=== PATIENT | male | born 1995 | race Caucasian/White ===

== ENCOUNTER 2019-04-25 17:10 | Emergency (ER) | payer OTHER, SELFPAY ==
--- NOTE | 2019-04-25 17:13 | W.ED.GENAD ---
Discharge Plan Disposition Patient Disposition: HOME Condition: Fair Discharge Details Chief Complaint: Orthopedic Clinical Impression: Finger fracture, left Primary Care Provider: Tony Melara ED Provider: Faina Barrientos Discharge Instructions Instructions: Finger Fracture (ED) Additional Instructions: Encourage rest, ice, elevation. Please continue with splint until cleared by orthopedics. Tylenol and ibuprofen as needed for discomfort. Please call orthopedics tomorrow to schedule follow-up appointment. If you develop new or worsening symptoms seek care urgently once again. Referrals: Wally Lara MD [ [facility] STAFF PHYSICIAN] - Tony Melara [Primary Care Provider] - Discharge Data Discharge Date/Time-TO BE ENTERED AT DEPARTURE: 04/25/19 18:20 Medical Decision Making Patient is a 23-year-old [id number]-ring-lxbsycpz male presents today with chief complaint of left fifth digit PIP joint pain. He reports that 3 weeks ago was playing basketball and suffered multiple episodes where the ball struck the tip of his finger causing it to jam. States that at one point he had a lateral dislocation at the PIP joint which she self reduced. He reports that despite this amount of time, elevating and intermittent icing, intermittent ibuprofen, pain is not improved. States that he has pain, particular with activity. Worse with any movement the force of the finger laterally. Denies any altered sensation. Denies other injuries from the incident. States that initially, he did have swelling that radiated up into the MCP joint but this is since resolved. Continues to have swelling at the PIP joint. Does seem to have some flexion extension against resistance intact but largely, is having a limited range of motion at the PIP joint. Does not have any laxity with medial or lateral joint line testing FINDINGS: Bones/joints: There is a small radiopaque density along the volar aspect of the fifth IP joint consistent with small bony fragment or radiopaque foreign body. Soft tissues: There is soft tissue swelling of the left fifth digit. IMPRESSION: 1. Soft tissue swelling left fifth digit. 2. Radiopaque density along the volar aspect of the IP joint may represent small bone fragment or radiopaque foreign body. The lateral view is overexposed and suboptimal for bone detail. Discussed findings with the patient. Patient diagnosed with fracture at the PIP joint of the fifth left finger. Advised rest, ice, elevation. Tylenol and ibuprofen as needed for discomfort. Patient was placed in a immobilizing foam and metal splint. Advised needs to follow-up with orthopedics, he will call tomorrow to schedule appointment. We discussed new/worsening symptoms when to seek care urgently once again. He will keep the splint on until reevaluated by orthopedics. All his questions and concerns were addressed and he is in agreement this plan HPI General Mode of arrival: ambulatory. Date/Time Provider Initiated Documentation: 04/25/19 17:12. Limitations to Documentation: no limitations. Information obtained by: patient and RN notes reviewed. History of Present Illness 23 year old M presents to the emergency department with the chief complaint of left 5th digit pain , described as mild, Quality is described as aching, and is localized to the left and upper extremity (PIP joint pain). Patient reports no radiation. Patient started experiencing this week(s) (3) and it has been intermittent. Immobilization improves symptom(s), Movement worsens symptoms . Patient notes rash (bruising PIP joint). Patient did receive the following treatments prior to arrival, NSAID Related Data Allergies Allergy/AdvReac Type Severity Reaction Status Date / Time No Known Allergies Allergy Unverified 04/25/19 17:18 Review of Systems Constitutional Reports as per HPI, Denies chills, Denies fever(s), Denies headache(s) and Denies weakness ENT Denies headache(s) Cardiovascular Reports as per HPI Respiratory Reports as per HPI and Denies cough Musculoskeletal Reports as per HPI and Denies tingling Integumentary/Breasts Reports as per HPI and Reports other (bruising PIP 5th digit) Neurologic Reports as per HPI, Denies headache(s), Denies tingling, Denies paresthesias and Denies weakness [facility] Surgical History Tonsillectomy and adenoidectomy Social History Smoking/Tobacco Use Status: Never Drug use: Occasionally Substance use type: marijuana Do you feel safe in your relationship?: Yes Exam Const General: cooperative, healthy appearing, comfortable, no acute distress, well developed and well groomed Nutritional Appearance: average body habitus and well nourished Orientation: alert and awake Resp Effort & Inspection: normal respiratory effort, able to speak in complete sentences and no respiratory distress Cardio Rate: regular rate Rhythm: regular rhythm Skin General skin exam: ecchymosis (PIP joint left fifth digit) Neuro General: alert and awake Cognition: normal cognition Speech: speech normal Gait: normal gait Motor: muscle tone normal throughout Sensory Exam: no sensory deficits noted Extrem Left upper extremity: normal capillary refill, wrist Details: normal to inspection and normal ROM; no tenderness and no swelling and hand Details: normal capillary refill, neuromotor exam normal, neurosensory exam normal, tenderness Location: of the 5th digit Location: at the PIP joint, vascular exam Details: radial pulse present and normal capillary refill, abnormal ROM of finger Details: pain with active ROM and unable to flex Location: of the 5th digit (limited flexion 5th PIP), swelling Location: of the 5th digit Location: at the PIP joint and ecchymosis; no abrasions, no lacerations and no crepitus; ROM limited (limited at PIP 5th digit) and joint enlargement noted (swellign PIP joint 5th digit) Psych Appearance: grossly normal and well kempt Mental Status: mental status grossly normal Speech and Movement: speech and movement normal
[2019-04-25 17:15] VITALS: BP 141/77; PULSE 66; RESP 16; TEMP 36.6; O2SAT 99
--- NOTE | 2019-04-25 17:31 | DI.RAD_ITS ---
SYMPTOM/DIAGNOSIS: TRAUMA, DIP PAIN, JAMMED PLAYING BASKETBALL LEFT LITTLE FINGER: Three views were obtained. There is soft tissue swelling adjacent to the PIP joint and on the lateral view there is a small denisse of ossific or calcific material suspicious for volar plate avulsion. No other fracture is seen.
--- NOTE | 2019-04-25 17:38 | ED.GENADUL_ITS ---
Discharge Plan Disposition Patient Disposition: HOME Condition: Fair Discharge Details Chief Complaint: Orthopedic Clinical Impression: Finger fracture, left Primary Care Provider: Tony Melara ED Provider: Faina Barrientos Discharge Instructions Instructions: Finger Fracture (ED) Additional Instructions: Encourage rest, ice, elevation. Please continue with splint until cleared by orthopedics. Tylenol and ibuprofen as needed for discomfort. Please call orthopedics tomorrow to schedule follow-up appointment. If you develop new or worsening symptoms seek care urgently once again. Referrals: Wally Lara MD [ [facility] STAFF PHYSICIAN] - Tony Melara [Primary Care Provider] - Discharge Data Discharge Date/Time-TO BE ENTERED AT DEPARTURE: 04/25/19 18:20 Medical Decision Making Patient is a 23-year-old qemqm-krux-mxpmyjee male presents today with chief complaint of left fifth digit PIP joint pain. He reports that 3 weeks ago was playing basketball and suffered multiple episodes where the ball struck the tip of his finger causing it to jam. States that at one point he had a lateral dislocation at the PIP joint which she self reduced. He reports that despite this amount of time, elevating and intermittent icing, intermittent ibuprofen, pain is not improved. States that he has pain, particular with activity. Worse with any movement the force of the finger laterally. Denies any altered sensation. Denies other injuries from the incident. States that initially, he did have swelling that radiated up into the MCP joint but this is since resolved. Continues to have swelling at the PIP joint. Does seem to have some flexion extension against resistance intact but largely, is having a limited range of motion at the PIP joint. Does not have any laxity with medial or lateral joint line testing FINDINGS: Bones/joints: There is a small radiopaque density along the volar aspect of the fifth IP joint consistent with small bony fragment or radiopaque foreign body. Soft tissues: There is soft tissue swelling of the left fifth digit. IMPRESSION: 1. Soft tissue swelling left fifth digit. 2. Radiopaque density along the volar aspect of the IP joint may represent small bone fragment or radiopaque foreign body. The lateral view is overexposed and suboptimal for bone detail. Discussed findings with the patient. Patient diagnosed with fracture at the PIP joint of the fifth left finger. Advised rest, ice, elevation. Tylenol and ibuprofen as needed for discomfort. Patient was placed in a immobilizing foam and metal splint. Advised needs to follow-up with orthopedics, he will call tomorrow to schedule appointment. We discussed new/worsening symptoms when to seek care urgently once again. He will keep the splint on until reevaluated by orthopedics. All his questions and concerns were addressed and he is in agreement this plan HPI General Mode of arrival: ambulatory . Date/Time Provider Initiated Documentation: 04/25/19 17:12 . Limitations to Documentation: no limitations . Information obtained by: patient and RN notes reviewed . History of Present Illness 23 year old M presents to the emergency department with the chief complaint of left 5th digit pain , described as mild, Quality is described as aching, and is localized to the left and upper extremity (PIP joint pain). Patient reports no radiation. Patient started experiencing this week(s) (3) and it has been intermittent. Immobilization improves symptom(s), Movement worsens symptoms . Patient notes rash (bruising PIP joint). Patient did receive the following treatments prior to arrival, NSAID Related Data Allergies Allergy/AdvReac Type Severity Reaction Status Date / Time No Known Allergies Allergy Unverified 04/25/19 17:18 Review of Systems Constitutional Reports as per HPI, Denies chills, Denies fever(s), Denies headache(s) and Denies weakness ENT Denies headache(s) Cardiovascular Reports as per HPI Respiratory Reports as per HPI and Denies cough Musculoskeletal Reports as per HPI and Denies tingling Integumentary/Breasts Reports as per HPI and Reports other (bruising PIP 5th digit) Neurologic Reports as per HPI, Denies headache(s), Denies tingling, Denies paresthesias and Denies weakness [facility] Surgical History Tonsillectomy and adenoidectomy Social History Smoking/Tobacco Use Status: Never Drug use: Occasionally Substance use type: marijuana Do you feel safe in your relationship?: Yes Exam Const General: cooperative, healthy appearing, comfortable, no acute distress, well developed and well groomed Nutritional Appearance: average body habitus and well nourished Orientation: alert and awake Resp Effort & Inspection: normal respiratory effort, able to speak in complete sentences and no respiratory distress Cardio Rate: regular rate Rhythm: regular rhythm Skin General skin exam: ecchymosis (PIP joint left fifth digit) Neuro General: alert and awake Cognition: normal cognition Speech: speech normal Gait: normal gait Motor: muscle tone normal throughout Sensory Exam: no sensory deficits noted Extrem Left upper extremity: normal capillary refill, wrist Details: normal to inspection and normal ROM; no tenderness and no swelling and hand Details: normal capillary refill, neuromotor exam normal, neurosensory exam normal, tenderness Location: of the 5th digit Location: at the PIP joint, vascular exam Details: radial pulse present and normal capillary refill, abnormal ROM of finger Details: pain with active ROM and unable to flex Location: of the 5th digit (limited flexion 5th PIP), swelling Location: of the 5th digit Location: at the PIP joint and ecchymosis; no abrasions, no lacerations and no crepitus; ROM limited (limited at PIP 5th digit) and joint enlargement noted (swellign PIP joint 5th digit) Psych Appearance: grossly normal and well kempt Mental Status: mental status grossly normal Speech and Movement: speech and movement normal
--- NOTE | 2019-04-25 18:01 | DI.VRAD_ITS ---
EXAM: XR Left Finger(s) EXAM DATE/TIME: 04/25/2019 5:32 PM CLINICAL HISTORY: 23 years old, male; Pain; Finger(s); Left TECHNIQUE: Imaging protocol: XR Left fingers. Views: Minimum 2 views. COMPARISON: No relevant prior studies available. FINDINGS: Bones/joints: There is a small radiopaque density along the volar aspect of the fifth IP joint consistent with small bony fragment or radiopaque foreign body. Soft tissues: There is soft tissue swelling of the left fifth digit. IMPRESSION: 1. Soft tissue swelling left fifth digit. 2. Radiopaque density along the volar aspect of the IP joint may represent small bone fragment or radiopaque foreign body. The lateral view is overexposed and suboptimal for bone detail. Dictated and Authenticated by: Concha Zaragoza MD. Ordering:CONNER Eisenberg MD
== END 2019-04-25 18:20 | disposition home or self-care (01) ==
PROVIDERS: Emergency Provider Physician Assistant; PCP Family Medicine
DX: S62.617A Displaced fracture of proximal phalanx of left little finger, initial encounter for closed fracture (principal); W21.05XA Struck by basketball, initial encounter
CPT/HCPCS: 26720; 73140

== ENCOUNTER 2019-05-03 13:58 | Outpatient (CLI) | payer OTHER, SELFPAY ==
--- NOTE | 2019-05-03 10:52 | DI.RAD_ITS ---
SYMPTOMS/DIAGNOSIS: FOLLOW UP LEFT LITTLE FINGER: Soft tissue swelling is noted over the proximal and middle phalanx. There is a tiny bony density adjacent to the anterior lip of the proximal metaphysis of the middle phalanx which would be consistent with a small cortical avulsion fracture which is in the region of the insertion of the flexor tendon. These findings unchanged when compared with the prior study of 04/25/19.
== END 2019-05-03 14:18 ==
PROVIDERS: PCP Family Medicine; Visit Provider Orthopaedic Surgery
DX: S62.617D Displaced fracture of proximal phalanx of left little finger, subsequent encounter for fracture with routine healing (principal)
CPT/HCPCS: 73140

== ENCOUNTER 2024-01-12 08:46 | Emergency (ER) | payer OTHER, SELFPAY ==
[2024-01-12] VITALS (7 sets, daily range): BP systolic 131–142; BP diastolic 71–73; PULSE 70–81; RESP 11–17; TEMP 36.7; O2SAT 99–100
--- NOTE | 2024-01-12 08:45 | RT.EKG_ITS ---
APPROVED REPORT Exam: Resting ECG Reason for Exam: Chest Pain Patient Location: E HR:68 bpm ECG Measurements Heart Rate 68 AXIS SC 155 P -1 QRSd 87 QRS 0 QT 387 T 24 QTc 411 Conclusion Sinus rhythm...normal P axis, V-rate 60- 99 Ventricular premature complex...V complex w/ short R-R interval Indeterminate axis...QRS axis indeterminate ST elev, probable normal early repol pattern...ST elevation, age<55
--- NOTE | 2024-01-12 09:00 | DI.RAD_ITS ---
Exam(s) XR CHEST 2V PA LATERAL EXAM: XR CHEST 2V PA LATERAL CLINICAL HISTORY: chest pain TECHNIQUE: 2D digital imaging was performed. Two views. COMPARISON: No exams were available for comparison FINDINGS: HEART: Normal size. Aorta: Not dilated. PULMONARY VASCULATURE: Normal. LUNGS: Clear. PLEURAL SPACE: No pleural effusion or pneumothorax. BONE:Unremarkable for age. Soft tissues: Unremarkable. IMPRESSION: No acute abnormality. DATA REPOSITORY: RADIATION DOSE DELIVERED:
--- NOTE | 2024-01-12 09:08 | ED.GENADUL_ITS ---
Discharge Plan Disposition Patient Disposition: Home Condition: Stable Discharge Details Chief Complaint: Chest Pain Clinical Impression: Back pain, Chest pain Primary Care Provider: Unknown,Unknown ED Provider: Singh Patton Home Meds and New Rx's Prescriptions: No Action No Known Home Meds Discharge Instructions Instructions: Chest Pain (ED), Back Pain (ED) Additional Instructions: If symptoms continue in a week follow-up with your primary care provider Your labs and x-ray today did not show concerning findings If you feel more ill, have severe worsening pain or severe difficulty breathing return to the emergency department for reevaluation HPI General Mode of arrival: ambulatory . Date/Time Provider Initiated Documentation: 01/12/24 08:47 . Limitations to Documentation: no limitations . Information obtained by: patient . History of Present Illness 28 year old M presents to the emergency department with the chief complaint of chest pain, described as moderate, Quality is described as aching, and is localized to the chest. Patient reports radiation to back. Patient started experiencing this hour(s) (3) and it has been intermittent. No relieving factors improve symptom(s), No exacerbating factors reported . Patient notes no other symptoms.; denies fever/chills and shortness of breath. Patient did receive the following treatments prior to arrival, none Related Data Home Medications Medication Instructions Recorded Confirmed Unknown [No Known Home Meds] 05/03/19 01/12/24 Allergies Allergy/AdvReac Type Severity Reaction Status Date / Time No Known Allergies Allergy Unverified 01/12/24 08:59 General Stated Complaint: Chest Pain JUAN: 3 Review of Systems All systems reviewed & are unremarkable except as noted in HPI and below Constitutional Constitutional: Denies chills, Denies fever(s) and Denies weakness Cardiovascular Cardiovascular: Reports chest pain and Denies dyspnea Respiratory Respiratory: Denies cough and Denies dyspnea Gastrointestinal Gastrointestinal: Denies abdominal pain, Denies nausea and Denies vomiting Musculoskeletal Musculoskeletal: Denies joint swelling Neurologic Neurologic: Denies weakness Psychiatric Psychiatric: Denies depression Exam Const General: no acute distress Orientation: alert HENNM Head: normal to inspection Ears: external ears normal General nose exam: external nose normal Mouth: moist mucous membranes Eyes General: appearance normal, both eyes and all related structures Neck Neck: normal visual inspection Chest Chest: normal inspection of the chest Resp Effort & Inspection: normal respiratory effort and able to speak in complete sentences Auscultation: clear to auscultation bilaterally Cardio Jugular venous pressure: no JVD Rate: regular rate Heart Sounds: no murmurs GI Palpation: soft and nontender Skin General skin exam: no rashes or lesions noted Neuro General: patient alert and patient oriented x3 Extrem General: normal to inspection Psych Mental Status: mental status grossly normal Course Vital Signs Vital signs: Vital Signs Pulse 76 01/12/24 08:50 Respiratory Rate 13 01/12/24 08:50 Blood Pressure 131/73 01/12/24 08:50 Pulse Oximetry 100 01/12/24 08:50 Pulse 76 01/12/24 08:50 Respiratory Rate 17 01/12/24 08:58 Respiratory Effort Short of Breath 01/12/24 08:58 Respiratory Depth Normal 01/12/24 08:58 Respiratory Pattern Normal 01/12/24 08:58 Blood Pressure 131/73 01/12/24 08:50 Blood Pressure Position Sitting 01/12/24 08:50 Pulse Oximetry 100 01/12/24 08:50 Oxygen Delivery Method Room Air 01/12/24 08:50 Oxygen Flow Rate 0 01/12/24 08:50 Pain Level 5 01/12/24 09:06 Medical Decision Making 28-year-old male who denies any significant past medical history comes in with complaints of chest tightness and aching. States he was feeling well when he woke up and then was lifting a box when he started having the chest pain and upper back pain. Denies any recent fevers, no cough, denies any IV drug use. He is alert and oriented x 4 on arrival and appears well speaking in full sentences. He has no JVD, clear lung sounds, no murmur, no leg swelling or calf tenderness. He does have reproducible anterior chest tenderness. Suspect musculoskeletal back pain but will send a troponin, CMP, and obtain a chest x- ray. He has no tearing back pain, and equal peripheral pulses so doubt dissection, and he is Wells score low and PERC negative so doubt PE. Labs and imaging unremarkable, symptoms started 3 hours prior to coming in so do not feel delta troponin indicated. Suspect musculoskeletal back and chest pain, he is stable for discharge, advised to follow-up with his primary care provider within a week especially if symptoms continue and return precautions given Differential Diagnosis Differential Diagnosis: NSTEMI, chest wall pain, pneumothorax Imaging Data Radiologic Study: Attestation: I personally reviewed and interpreted this imaging study as follows: Imaging: X-Ray Radiologist's impression: No acute findings Lab Data Lab results reviewed: Yes I reviewed the patient's lab results. ECG Data Attestation: I personally reviewed and interpreted this ECG (s) as follows: Prior ECG tracings: not available for review Interpretation: sinus, rate of 68, pr 155, no stemi Quality:SDOH Health Related Social Needs: No Data to Display PFSH All Active Problems (Updated 01/12/24 @ 10:30 by Singh Patton MD) Chest pain (Acute) Back pain (Acute) Fracture of middle phalanx of finger of left hand (Acute) Surgical History Tonsillectomy and adenoidectomy Social History Smoking/Tobacco Use Status: Never Smoking risk assessment performed?: Yes Drug use: Occasionally Substance use type: marijuana Do you feel safe in your relationship?: Yes PAWSS Have you Been Recently Intoxicated or Drunk Within the Last 30 days?: No Have you Ever Experienced Previous Episodes of Alcohol Withdrawal?: No Have you ever Experienced Withdrawal Seizures?: No Have you ever Experienced Delirium Tremens(DT)s?: No Have you ever undergone Alcohol Rehabilitation Treatment (i.e, inpt ot outpatient treatment programs)?: No Have you ever Experienced Blackouts?: No Have you ever Combined Alcohol with other Downers within the last 90 days?: No Have you ever Combined Alcohol with any other Substance of Abuse during the last 90 days?: No Result: 0
[2024-01-12 09:30] LABS: Abs Immature Grans 0.02 10^3/uL (0.0-0.06); Absolute Basophil Count 0.03 10^3/uL (0.0-0.2); Absolute Eosinophil Count 0.09 10^3/uL (0.0-0.7); Absolute Lymphocyte Count 1.32 10^3/uL (1.2-3.4); Absolute Neutrophil Count 3.34 10^3/uL (1.2-6.7); Basophils % 0.6; Eosinophils % 1.7; HCT 44.3 % (40.0-50.0); HGB 15.5 g/dL (13.5-17.5); Immature Grans % 0.4; Lymphocytes % 24.4; MCH 30.9 pg (27.0-33.0); MCV 88 fL (80-95); Monocytes % 11.1; Neutrophils % 61.8; Platelet Count 258 10^3/uL (130-400); RBC 5.02 10^6/uL (4.36-5.78); RDW 12.9 % (11.8-14.1); RDW-SD 41.6 fL
[2024-01-12 09:49] LABS: ALT 55 U/L (16-63); AST 36 U/L (15-37); Albumin 3.9 g/dL (3.4-5.0); Alkaline Phosphatase 78 U/L (46-116); Anion Gap 11.9 mmol/L (3-11); BUN 17 mg/dL (7-18); Bilirubin, Total 0.8 mg/dL (0.2-1.0); CO2 24.1 mmol/L (21.0-32.0); CREATININE 0.9 mg/dL (0.70-1.30); Calcium 9.1 mg/dL (8.5-10.1); Chloride 103 mmol/L (98-107); Glucose 88 mg/dL (74-106); Lipase 29 U/L (16-77); Magnesium 1.9 mg/dL (1.8-2.4); Potassium 4.3 mmol/L (3.5-5.1); Sodium 139 mmol/L (136-145); Total Protein 7.3 g/dL (6.4-8.2); Troponin I < 50 ng/L (< or =60)
[2024-01-12] MEDS: Aspirin 81 MG CHEW 324 MG CH (10:26)
== END 2024-01-12 10:42 | disposition home or self-care (01) ==
PROVIDERS: Emergency Provider Emergency Medicine
DX: R07.9 Chest pain, unspecified (principal)
CPT/HCPCS: 36415; 80053; 83690; 93005; 99285; 71046; 83735; 84484; 85025; 93010; 99284

== ENCOUNTER 2024-12-14 11:59 | Outpatient (REF) | payer OTHER, SELFPAY ==
[2024-12-14 15:35] LABS: ALT 46 U/L (16-63); AST 31 U/L (15-37); Albumin 4.5 g/dL (3.4-5.0); Alkaline Phosphatase 86 U/L (46-116); Anion Gap 9.5 mmol/L (3-11); BUN 14 mg/dL (7-18); CO2 24.5 mmol/L (21.0-32.0); CREATININE 0.9 mg/dL (0.70-1.30); Calcium 9.4 mg/dL (8.5-10.1); Calculated LDL 150 mg/dL (<100); Chloride 107 mmol/L (98-107); Cholesterol 208 mg/dL (<200); Estimated GFR 120.05 (mL/min/1.73m2); Glucose 92 mg/dL (74-106); HDL Cholesterol 37 mg/dL (40-60); Potassium 4.1 mmol/L (3.5-5.1); Sodium 141 mmol/L (136-145); Total Protein 7.6 g/dL (6.4-8.2); Triglyceride 107 mg/dL (<150)
== END 2024-12-14 12:00 | disposition home or self-care (01) ==
LOC: NCHCN 11:59
PROVIDERS: PCP Student in an Organized Health Care Education/Training Program; Visit Provider Student in an Organized Health Care Education/Training Program
DX: Z13.220 Encounter for screening for lipoid disorders (principal); Z13.228 Encounter for screening for other metabolic disorders
CPT/HCPCS: 80053; 80061

== ENCOUNTER 2025-07-27 13:03 | Outpatient (REF) | payer OTHER, SELFPAY ==
[2025-07-27 17:48] LABS: Calculated LDL 178 mg/dL (<100); Cholesterol 225 mg/dL (<200); HDL Cholesterol 36 mg/dL (>or=40); Triglyceride 59 mg/dL (<150)
== END 2025-07-27 13:04 | disposition home or self-care (01) ==
LOC: NCHCN 13:03
PROVIDERS: PCP Student in an Organized Health Care Education/Training Program; Visit Provider Student in an Organized Health Care Education/Training Program
DX: E78.5 Hyperlipidemia, unspecified (principal)
CPT/HCPCS: 80061